=== PATIENT | male | born 1990 | race African-American/Black ===

== ENCOUNTER 2018-08-09 13:55 | Emergency (ER) | payer BC ==
[2018-08-09 15:15] LABS: CHLORIDE,CL 103 mmol/L (98-107); SODIUM,NA 139 mmol/L (136-148)
--- NOTE | 2018-08-09 15:28 | EDM.PDOC ---
ED HPI GENERAL MEDICAL PROBLEM - General Chief Complaint: Cardiovascular Problem Stated Complaint: DIZZY,DISORIENTATED, FREQUENT URINATION Time Seen by Provider: 08/09/18 13:56 Source of Information: Reports: Patient History Limitations: Reports: No Limitations - History of Present Illness INITIAL COMMENTS - FREE TEXT/NARRATIVE: History of present illness: []She has not been able to sleep well for several days and is feeling disoriented. He also complains of frequent urination. Any fevers, chills, nausea , vomiting, diarrhea, chest pain or abdominal pain. Review of systems: As per history of present illness and below otherwise all systems reviewed and negative. Past medical history: As per history of present illness and as reviewed below otherwise noncontributory. Surgical history: As per history of present illness and as reviewed below otherwise noncontributory. Social history: No reported history of drug or alcohol abuse. Family history: As per history of present illness and as reviewed below otherwise noncontributory. Physical exam: General: Well developed, well nourished in NAD HEENT: Atraumatic, normocephalic, pupils reactive, negative for conjunctival pallor or scleral icterus, mucous membranes moist, throat clear, neck supple, nontender, trachea midline. Lungs: Clear to auscultation, breath sounds equal bilaterally, chest nontender. Heart: S1S2, regular, negative for clicks, rubs, or JVD. Abdomen: NABS, Soft, nondistended, nontender. Negative for masses or hepatosplenomegaly. Negative for costovertebral tenderness. Pelvis: Stable nontender. Genitourinary: Deferred. Rectal: Deferred. Extremities: Atraumatic, negative for cords or calf pain. Neurovascular unremarkable. Neuro: Awake, alert, oriented. Cranial nerves II through XII unremarkable. Cerebellum unremarkable. Motor and sensory unremarkable throughout. Exam nonfocal. Skin:warm and dry Diagnostics: CBC, chemistry-with mildly elevated BUN/creatinine, urine, drug screen all negative Therapeutics: None ED Course: Unremarkable Impression: Dehydration, insomnia Prescriptions: None Plan: Follow-up with primary care, increase fluids, Benadryl for sleep. Definitive disposition and diagnosis as appropriate pending reevaluation and review of above. - Related Data Allergies Allergy/AdvReac Type Severity Reaction Status Date / Time No Known Allergies Allergy Verified 08/09/18 14:06 Home Meds: Home Meds . [No Known Home Meds] 08/09/18 [History] Past Medical History HEENT History: Reports: None Cardiovascular History: Reports: None Respiratory History: Reports: None Gastrointestinal History: Reports: None Genitourinary History: Reports: None Musculoskeletal History: Reports: None Neurological History: Reports: None Psychiatric History: Reports: None Endocrine/Metabolic History: Reports: None Hematologic History: Reports: None Immunologic History: Reports: None Oncologic (Cancer) History: Reports: None Dermatologic History: Reports: None - Past Surgical History Head Surgeries/Procedures: Reports: None HEENT Surgical History: Reports: None Cardiovascular Surgical History: Reports: None Respiratory Surgical History: Reports: None GI Surgical History: Reports: None Male Surgical History: Reports: None Endocrine Surgical History: Reports: None Neurological Surgical History: Reports: None Musculoskeletal Surgical History: Reports: None Oncologic Surgical History: Reports: None Dermatological Surgical History: Reports: None Social & Family History - Family History Family Medical History: Noncontributory - Tobacco Use Smoking Status *Q: Current Some Day Smoker Years of Tobacco use: 10 Packs/Tins Daily: 0.1 - Caffeine Use Caffeine Use: Reports: Coffee - Recreational Drug Use Recreational Drug Use: No ED ROS GENERAL - Review of Systems Review Of Systems: ROS reveals no pertinent complaints other than HPI. ED EXAM, GENERAL - Physical Exam Exam: See Below (See history of present illness) Course - Vital Signs Last Recorded V/S: Last Vital Signs Temp 97.4 F 08/09/18 14:06 Pulse 104 H 08/09/18 14:06 Resp 18 08/09/18 14:06 BP 155/94 H 08/09/18 14:06 Pulse Ox 97 08/09/18 14:06 - Orders/Labs/Meds Labs: Laboratory Tests 08/09/18 08/09/18 08/09/18 Range/Units 14:26 14:26 14:26 WBC 4.39 (4.0-11.0) K/uL RBC 4.97 (4.50-5.90) M/uL Hgb 14.0 (13.0-17.0) g/dL Hct 42.8 (38.0-50.0) % MCV 86.1 (80.0-98.0) fL MCH 28.2 (27.0-32.0) pg MCHC 32.7 (31.0-37.0) g/dL RDW Std Deviation 44.3 (28.0-62.0) fl RDW Coeff of Dorys 14 (11.0-15.0) % Plt Count 285 (150-400) K/uL MPV 10.80 (7.40-12.00) fL Neut % (Auto) 40.5 L (48.0-80.0) % Lymph % (Auto) 49.9 H (16.0-40.0) % Trigg % (Auto) 8.0 (0.0-15.0) % Eos % (Auto) 0.9 (0.0-7.0) % Baso % (Auto) 0.7 (0.0-1.5) % Neut # (Auto) 1.8 (1.4-5.7) K/uL Lymph # (Auto) 2.2 (0.6-2.4) K/uL Trigg # (Auto) 0.4 (0.0-0.8) K/uL Eos # (Auto) 0.0 (0.0-0.7) K/uL Baso # (Auto) 0.0 (0.0-0.1) K/uL Nucleated RBC % 0.0 /100WBC Nucleated RBCs # 0 K/uL Sodium (136-148) mmol/L Potassium (3.5-5.1) mmol/L Chloride (98-107) mmol/L Carbon Dioxide (21.0-32.0) mmol/L BUN (7.0-18.0) mg/dL Creatinine (0.8-1.3) mg/dL Est Cr Clr Drug Dosing mL/min Estimated GFR (MDRD) ml/min Glucose (74-106) mg/dL Calcium (8.5-10.1) mg/dL Total Bilirubin (0.2-1.0) mg/dL AST (15-37) IU/L ALT (14-63) IU/L Alkaline Phosphatase (46-116) U/L Total Protein (6.4-8.2) g/dL Albumin (3.4-5.0) g/dL Globulin (2.6-4.0) g/dL Albumin/Globulin Ratio (0.9-1.6) Urine Color YELLOW Urine Appearance CLEAR Urine pH 5.5 (5.0-8.0) Ur Specific [place] >= 1.030 (1.001-1.035) Urine Protein NEGATIVE (NEGATIVE) mg/dL Urine Glucose (UA) NEGATIVE (NEGATIVE) mg/dL Urine Ketones NEGATIVE (NEGATIVE) mg/dL Urine Occult Blood NEGATIVE (NEGATIVE) Urine Nitrite NEGATIVE (NEGATIVE) Urine Bilirubin NEGATIVE (NEGATIVE) Urine Urobilinogen 0.2 (<2.0) EU/dL Ur Leukocyte Esterase NEGATIVE (NEGATIVE) Urine RBC 0-1 (0-2/HPF) Urine WBC 0-1 (0-5/HPF) Ur Epithelial Cells NOT SEEN (NONE-FEW) Urine Bacteria RARE (NEGATIVE) Urine Opiates Screen NEGATIVE (NEGATIVE) Ur Oxycodone Screen NEGATIVE (NEGATIVE) Urine Methadone Screen NEGATIVE (NEGATIVE) Ur Barbiturates Screen NEGATIVE (NEGATIVE) Ur Phencyclidine Scrn NEGATIVE (NEGATIVE) Ur Amphetamine Screen NEGATIVE (NEGATIVE) U Methamphetamines Scrn NEGATIVE (NEGATIVE) U Benzodiazepines Scrn NEGATIVE (NEGATIVE) U Cocaine Metab Screen NEGATIVE (NEGATIVE) U Marijuana (THC) Screen NEGATIVE (NEGATIVE) 08/09/18 Range/Units 14:26 WBC (4.0-11.0) K/uL RBC (4.50-5.90) M/uL Hgb (13.0-17.0) g/dL Hct (38.0-50.0) % MCV (80.0-98.0) fL MCH (27.0-32.0) pg MCHC (31.0-37.0) g/dL RDW Std Deviation (28.0-62.0) fl RDW Coeff of Dorys (11.0-15.0) % Plt Count (150-400) K/uL MPV (7.40-12.00) fL Neut % (Auto) (48.0-80.0) % Lymph % (Auto) (16.0-40.0) % Trigg % (Auto) (0.0-15.0) % Eos % (Auto) (0.0-7.0) % Baso % (Auto) (0.0-1.5) % Neut # (Auto) (1.4-5.7) K/uL Lymph # (Auto) (0.6-2.4) K/uL Trigg # (Auto) (0.0-0.8) K/uL Eos # (Auto) (0.0-0.7) K/uL Baso # (Auto) (0.0-0.1) K/uL Nucleated RBC % /100WBC Nucleated RBCs # K/uL Sodium 139 (136-148) mmol/L Potassium 4.1 (3.5-5.1) mmol/L Chloride 103 (98-107) mmol/L Carbon Dioxide 28.4 (21.0-32.0) mmol/L BUN 19 H (7.0-18.0) mg/dL Creatinine 1.5 H (0.8-1.3) mg/dL Est Cr Clr Drug Dosing 90.75 mL/min Estimated GFR (MDRD) > 60.0 ml/min Glucose 117 H (74-106) mg/dL Calcium 9.1 (8.5-10.1) mg/dL Total Bilirubin 0.2 (0.2-1.0) mg/dL AST 21 (15-37) IU/L ALT 60 (14-63) IU/L Alkaline Phosphatase 64 (46-116) U/L Total Protein 7.9 (6.4-8.2) g/dL Albumin 4.0 (3.4-5.0) g/dL Globulin 3.9 (2.6-4.0) g/dL Albumin/Globulin Ratio 1.0 (0.9-1.6) Urine Color Urine Appearance Urine pH (5.0-8.0) Ur Specific [place] (1.001-1.035) Urine Protein (NEGATIVE) mg/dL Urine Glucose (UA) (NEGATIVE) mg/dL Urine Ketones (NEGATIVE) mg/dL Urine Occult Blood (NEGATIVE) Urine Nitrite (NEGATIVE) Urine Bilirubin (NEGATIVE) Urine Urobilinogen (<2.0) EU/dL Ur Leukocyte Esterase (NEGATIVE) Urine RBC (0-2/HPF) Urine WBC (0-5/HPF) Ur Epithelial Cells (NONE-FEW) Urine Bacteria (NEGATIVE) Urine Opiates Screen (NEGATIVE) Ur Oxycodone Screen (NEGATIVE) Urine Methadone Screen (NEGATIVE) Ur Barbiturates Screen (NEGATIVE) Ur Phencyclidine Scrn (NEGATIVE) Ur Amphetamine Screen (NEGATIVE) U Methamphetamines Scrn (NEGATIVE) U Benzodiazepines Scrn (NEGATIVE) U Cocaine Metab Screen (NEGATIVE) U Marijuana (THC) Screen (NEGATIVE) Departure - Departure Time of Disposition: 15:27 Disposition: Home, Self-Care 01 Condition: Good Clinical Impression: Dehydration Insomnia Qualifiers: Insomnia type: unspecified Qualified Code(s): G47.00 - Insomnia, unspecified Referrals: PCP,None [Primary Care Provider] - Additional Instructions: The following information is given to patients seen in the emergency department who are being discharged to home. This information is to outline your options for follow-up care. We provide all patients seen in our emergency department with a follow-up referral. The need for follow-up, as well as the timing and circumstances, are variable depending upon the specifics of your emergency department visit. If you don't have a primary care physician on staff, we will provide you with a referral. We always advise you to contact your personal physician following an emergency department visit to inform them of the circumstance of the visit and for follow-up with them and/or the need for any referrals to a consulting specialist. The emergency department will also refer you to a specialist when appropriate. This referral assures that you have the opportunity for follow-up care with a specialist. All of these measure are taken in an effort to provide you with optimal care, which includes your follow-up. Under all circumstances we always encourage you to contact your private physician who remains a resource for coordinating your care. When calling for follow-up care, please make the office aware that this follow-up is from your recent emergency room visit. If for any reason you are refused follow-up, please contact the [facility] Emergency Department at and asked to speak to the emergency department charge nurse. increase fluids, follow-up with primary care. He continues 1-2 tablets of Benadryl at night for sleep, is worse or change. [facility] [place] [id number]
== END 2018-08-09 16:05 | disposition home or self-care (01) ==
LOC: MW.ED 13:55
DX: E86.0 Dehydration (principal); G47.00 Insomnia, unspecified; F17.210 Nicotine dependence, cigarettes, uncomplicated
CPT/HCPCS: 36415; 80053; 80305-QW; 81001; 85025; 93005; 99283; 99284

== ENCOUNTER 2020-02-14 07:51 | Emergency (ER) | payer BC, OTHER ==
[2020-02-14] MEDS ORDERED: Acetaminophen 500 MG Tab PO ONE (08:17)
[2020-02-14] MEDS ORDERED: Ibuprofen 400 MG Tab PO ONE (08:17)
[2020-02-14] MEDS ORDERED: Sodium Chloride 0.9% 10 ML Syringe FLUSH PRN (08:17)
[2020-02-14] MEDS ORDERED: Sodium Chloride 0.9% 2.5 ML Syringe FLUSH PRN (08:17)
--- NOTE | 2020-02-14 08:35 | EDM.PDOC ---
ED [facility] GENERAL MEDICAL PROBLEM - General Chief Complaint: General Stated Complaint: LOWER BACK PAIN Time Seen by Provider: 02/14/20 07:56 Source of Information: Reports: Patient History Limitations: Reports: No Limitations - History of Present Illness INITIAL COMMENTS - FREE TEXT/NARRATIVE: 29-year-old male with no past medical history presenting with rectal pain. Patient reports a one-week history of pain in the perianal region. He is concerned that he may have a hemorrhoid. He has been taking Preparation H at home with partial relief of his pain. Reports perianal pain, denies itching, fever, rectal bleeding, bloody stools, constipation, or diarrhea. No previously diagnosed history of hemorrhoids. ROS: A 10-point review of systems was negative, except as noted in the HPI (or in the ROS section of this note). Past medical history: Reviewed, no additional pertinent history. Surgical history: Reviewed in system, no additional pertinent history. Social history: Reviewed in system, no additional pertinent history. Family history: Reviewed in system, no additional pertinent history. PHYSICAL EXAM Vital signs reviewed. Nursing notes reviewed. Constitutional: Awake, alert, non-distressed. Head: Normocephalic, atraumatic. Eyes: EOMI, conjunctiva normal, no discharge, no scleral icterus. Ears, Nose, Throat: External ears and nose normal, moist oral mucosa. Cardiovascular: 2+ radial pulse, capillary refill less than 2 seconds. Pulmonary: normal work of breathing, no accessory muscle use. Abdomen/GI: Soft, nontender, nondistended, no guarding or rigidity, no masses. : Chaperoned exam with NINA Stallworth. The right posterolateral perianal region is erythematous and exquisitely tender with mild fluctuance concerning for a cellulitis vs possible early developing abscess. There is no evidence of external hemorrhoid. No evidence of anal fissure. Musculoskeletal: No deformities. Integumentary: Appropriate color for ethnicity, warm, dry, no pallor or jaundice, no rash. Neurologic: Alert, answering questions appropriately, normal speech, no facial droop, moving all extremities well. Psychiatric: Appropriate mood and affect, normal thought process. rectal Pain Score (Numeric/FACES): 8 - Related Data Allergies Allergy/AdvReac Type Severity Reaction Status Date / Time No Known Allergies Allergy Verified 02/14/20 08:00 Home Meds: Home Meds Acetaminophen [Acetaminophen Extra Strength] 500 - 1,000 mg PO Q6H PRN #30 tablet 02/14/20 [Rx] Doxycycline Hyclate 100 mg PO BID 14 Days #28 tablet. 02/14/20 [Rx] Ibuprofen 400 mg PO Q6H PRN #30 tablet 02/14/20 [Rx] Past Medical History HEENT History: Reports: None Cardiovascular History: Reports: None Respiratory History: Reports: None Gastrointestinal History: Reports: None Genitourinary History: Reports: None Musculoskeletal History: Reports: None Neurological History: Reports: None Psychiatric History: Reports: None Endocrine/Metabolic History: Reports: None Hematologic History: Reports: None Immunologic History: Reports: None Oncologic (Cancer) History: Reports: None Dermatologic History: Reports: None - Infectious Disease History Infectious Disease History: Reports: Chicken Pox - Past Surgical History Head Surgeries/Procedures: Reports: None HEENT Surgical History: Reports: None Cardiovascular Surgical History: Reports: None Respiratory Surgical History: Reports: None GI Surgical History: Reports: None Male Surgical History: Reports: None Endocrine Surgical History: Reports: None Neurological Surgical History: Reports: None Musculoskeletal Surgical History: Reports: None Oncologic Surgical History: Reports: None Dermatological Surgical History: Reports: None Social & Family History - Family History Family Medical History: Noncontributory - Tobacco Use Smoking Status *Q: Never Smoker - Caffeine Use Caffeine Use: Reports: Coffee - Recreational Drug Use Recreational Drug Use: Yes Recreational Drug Type: Reports: Marijuana/Hashish Recreational Drug Use Frequency: Monthly ED ROS GENERAL - Review of Systems Review Of Systems: See Below ED EXAM, GENERAL - Physical Exam Exam: See Below ED I&D PROCEDURES - I&D Site: Left buttock/gluteal cleft Skin prep: Isopropyl Alcohol (Alcohol) Local Anesthesia - Bupivicaine (Marcaine): 0.5% Plain Local Anesthetic Volume: 5cc Area Incised With: 11 Blade Drainage: Purulent, Large Amount Probed to Break Up Loculations: Yes Packed With: 1/4 in. Iodoform Sterile Dressinx4(s) Complications: No Course - Vital Signs Text/Narrative:: Patient hemodynamically stable, afebrile, well-appearing, looks nontoxic. Differential diagnosis includes but is not limited to: perianal cellulitis, perianal abscess, perirectal abscess, etc. Labs reassuring, mildly elevated creatinine. Exam and CT scan are consistent with a perianal abscess, otherwise no acute findings. Patient was very intolerant of physical examination and I do not think he is a good candidate for bedside I&D with local anesthesia alone. We did discuss options including IV opioid and benzodiazepine therapy along with local infiltration of anesthesia, the patient would prefer procedural sedation. I consulted the on-call MANAGER [employer] team who performed procedural sedation, refer to their documentation for the sedation portion of the procedure. I then performed a bedside incision and drainage as detailed in the procedure note. Patient recovered well without complications. Wound culture was sent. Patient is stable to discharge home with return in 48 hours for recheck and packing removal. Will be sent home on a twice daily course of doxycycline pending culture results. Recommended acetaminophen and ibuprofen as needed for pain. Plan: Patient is stable to discharge home with outpatient primary care clinic follow-up. Strict emergency department return precautions were provided, patien t indicated understanding. All questions were answered prior to departure. Discharged in good condition. Last Recorded V/S: Last Vital Signs Temp 35.9 C L 02/14/20 08:00 Pulse 93 02/14/20 09:06 Resp 18 02/14/20 10:07 BP 142/81 H 02/14/20 10:07 Pulse Ox 97 02/14/20 09:06 - Orders/Labs/Meds Orders: Active Orders 24 hr Category Date Time Status Pulse Oximetry [RC] ASDIRECTED Care 02/14/20 08:17 Active Nothing Per Oral Diet [DIET] Diet 02/14/20 Breakfast Active CULTURE WOUND [RM] Stat Lab 02/14/20 10:55 Received Sodium Chloride 0.9% [Saline Flush] Med 02/14/20 08:17 Active 10 ml FLUSH ASDIRECTED PRN Sodium Chloride 0.9% [Saline Flush] Med 02/14/20 08:17 Active 2.5 ml FLUSH ASDIRECTED PRN Saline Lock Insert [OM.PC] Stat Oth 09/15/20 08:17 Ordered Medication Orders Sodium Chloride (Saline Flush) 10 ml FLUSH ASDIRECTED PRN PRN Reason: Keep Vein Open Last Admin: 02/14/20 09:50 Dose: 10 ml Documented by: JORGITO Sodium Chloride (Saline Flush) 2.5 ml FLUSH ASDIRECTED PRN PRN Reason: Keep Vein Open Last Admin: 02/14/20 09:50 Dose: 2.5 ml Documented by: JORGITO Labs: Laboratory Tests 02/14/20 02/14/20 Range/Units 08:23 08:23 WBC 9.65 (4.0-11.0) K/uL RBC 4.94 (4.50-5.90) M/uL Hgb 14.1 (13.0-17.0) g/dL Hct 43.4 (38.0-50.0) % MCV 87.9 (80.0-98.0) fL MCH 28.5 (27.0-32.0) pg MCHC 32.5 (31.0-37.0) g/dL RDW Std Deviation 42.2 (28.0-62.0) fl RDW Coeff of Dorys 13 (11.0-15.0) % Plt Count 334 (150-400) K/uL MPV 10.50 (7.40-12.00) fL Neut % (Auto) 70.3 (48.0-80.0) % Lymph % (Auto) 21.6 (16.0-40.0) % [place] % (Auto) 7.5 (0.0-15.0) % Eos % (Auto) 0.4 (0.0-7.0) % Baso % (Auto) 0.2 (0.0-1.5) % Neut # (Auto) 6.8 H (1.4-5.7) K/uL Lymph # (Auto) 2.1 (0.6-2.4) K/uL [place] # (Auto) 0.7 (0.0-0.8) K/uL Eos # (Auto) 0.0 (0.0-0.7) K/uL Baso # (Auto) 0.0 (0.0-0.1) K/uL Nucleated RBC % 0.0 /100WBC Nucleated RBCs # 0 K/uL Sodium 138 (136-148) mmol/L Potassium 4.0 (3.5-5.1) mmol/L Chloride 102 (98-107) mmol/L Carbon Dioxide 28.6 (21.0-32.0) mmol/L BUN 19 H (7.0-18.0) mg/dL Creatinine 1.5 H (0.8-1.3) mg/dL Est Cr Clr Drug Dosing 92.25 mL/min Estimated GFR (MDRD) > 60.0 ml/min Glucose 139 H (74-106) mg/dL Calcium 9.0 (8.5-10.1) mg/dL Meds: Medications Generic Name Dose Route Start Last Admin Trade Name Freq PRN Reason Stop Dose Admin Sodium Chloride 10 ml 02/14/20 08:17 02/14/20 09:50 Saline Flush FLUSH 10 ml ASDIRECTED PRN Administration Keep Vein Open Sodium Chloride 2.5 ml 02/14/20 08:17 02/14/20 09:50 Saline Flush FLUSH 2.5 ml ASDIRECTED PRN Administration Keep Vein Open Discontinued Medications Generic Name Dose Route Start Last Admin Trade Name Freq PRN Reason Stop Dose Admin Acetaminophen 1,000 mg 02/14/20 08:17 02/14/20 08:22 Tylenol Extra Strength PO 02/14/20 08:18 1,000 mg ONETIME ONE Administration Bupivacaine HCl Confirm 02/14/20 10:39 Sensorcaine-Mpf 0.5% Administered 02/14/20 10:40 Dose 10 ml .ROUTE .STK-MED ONE Fentanyl Confirm 02/14/20 10:22 Fentanyl Administered 02/14/20 10:23 Dose 50 mcg .ROUTE .STK-MED ONE Fentanyl Confirm 02/14/20 10:22 Sublimaze Administered 02/14/20 10:23 Dose 200 mcg .ROUTE .STK-MED ONE Ibuprofen 400 mg 02/14/20 08:17 02/14/20 08:22 Motrin PO 02/14/20 08:18 400 mg ONETIME ONE Administration Iopamidol 100 ml 02/14/20 09:55 02/14/20 09:55 Isovue-370 (76%) IVPUSH 02/14/20 09:56 100 ml ONETIME STA Administration Midazolam HCl Confirm 02/14/20 10:23 Versed 1 Mg/Ml Administered 02/14/20 10:24 Dose 2 mg .ROUTE .STK-MED ONE Propofol Confirm 02/14/20 10:23 Diprivan 20 Ml Administered 02/14/20 10:24 Dose 400 mg .ROUTE .STK-MED ONE Departure - Departure Time of Disposition: 11:25 Disposition: Home, Self-Care 01 Condition: Good Clinical Impression: Perianal abscess, Elevated serum creatinine - Discharge Information *PRESCRIPTION DRUG MONITORING PROGRAM REVIEWED*: Not Applicable *COPY OF PRESCRIPTION DRUG MONITORING REPORT IN PATIENT LASHONDA: Not Applicable Prescriptions: Acetaminophen [Acetaminophen Extra Strength] 500 - 1,000 mg PO Q6H PRN #30 tablet PRN Reason: Pain (Mild 1-3) Doxycycline Hyclate 100 mg PO BID 14 Days #28 tablet. Ibuprofen 400 mg PO Q6H PRN #30 tablet PRN Reason: Pain (Mild 1-3) Instructions: Skin Abscess, [id number] Referrals: Emergency Room [Provider Group] - 2 Days (For abscess re-check.) Forms: ED Department Discharge Additional Instructions: You were seen in the emergency department for an abscess to your buttocks. This was drained in the emergency department. I would like for you to come back to the ER in 2 days to have the abscess reevaluated and to have your packing removed if necessary. In the meantime I am going to start you on some oral antibiotics, finish the entire bottle. I recommend [id number] extra strength acetaminophen (1000 mg every 6 hours) and ibuprofen (400 mg every 6 hours) to help treat your pain. I would like for you to follow-up with a family doctor in the next few months to have a physical/general medical examination. Your creatinine (kidney function) is abnormally elevated, and I would like for you to be evaluated further by a family medicine clinic/primary medical provider for further work-up. Warning signs to come back to the ER include worsening pain, fever of 100.4 higher, chills, repeated vomiting, or any other new or concerning symptoms. Please return the emergency department immediately if your symptoms worsen or if you feel worse. Thank you for choosing the [facility] emergency department in [place] for your medical needs today. It was a pleasure caring for you. The following information is given to patients seen in the emergency department who are being discharged. This information is to outline your options for follow-up care. We provide all patients seen in our emergency department with a follow-up referral. The need for follow-up, as well as the timing and circumstances, are variable depending upon the specifics of your emergency department visit. If you don't have a primary care physician on staff, we will provide you with a referral. We always advise you to contact your personal physician following an emergency department visit to inform them of the circumstance of the visit and for follow-up with them and/or the need for any referrals to a consulting specialist. The emergency department will also refer you to a specialist when appropriate. This referral assures that you have the opportunity for follow-up care with a specialist. All of these measure are taken in an effort to provide you with optimal care, which includes your follow-up. Under all circumstances we always encourage you to contact your private physician who remains a resource for coordinating your care. When calling for follow-up care, please make the office aware that this follow-up is from your recent emergency room visit. If for any reason you are refused follow-up, please contact the [facility] Emergency Department at and asked to speak to the emergency department charge nurse. If you do not have a primary care physician that is caring for you, you can contact these clinics below to set up an appointment to establish care: [facility] - Primary Care [address] [place] [id number] [facility] [address] [place] [id number] Sepsis Event Note (ED) - Evaluation Sepsis Screening Result: No Definite Risk - Focused Exam Vital Signs: Vital Signs Temp Pulse Resp BP Pulse Ox 02/14/20 10:07 18 142/81 H 02/14/20 09:06 93 17 132/81 97 02/14/20 08:00 35.9 C L 93 18 137/78 98 - My Orders Last 24 Hours: My Active Orders 02/14/20 Breakfast Nothing Per Oral Diet [DIET] 02/14/20 08:17 Pulse Oximetry [RC] ASDIRECTED Sodium Chloride 0.9% [Saline Flush] 10 ml FLUSH ASDIRECTED PRN Sodium Chloride 0.9% [Saline Flush] 2.5 ml FLUSH ASDIRECTED PRN Saline Lock Insert [OM.PC] Stat 02/14/20 10:55 CULTURE WOUND [RM] Stat - Assessment/Plan Last 24 Hours: My Active Orders 02/14/20 Breakfast Nothing Per Oral Diet [DIET] 02/14/20 08:17 Pulse Oximetry [RC] ASDIRECTED Sodium Chloride 0.9% [Saline Flush] 10 ml FLUSH ASDIRECTED PRN Sodium Chloride 0.9% [Saline Flush] 2.5 ml FLUSH ASDIRECTED PRN Saline Lock Insert [OM.PC] Stat 02/14/20 10:55 CULTURE WOUND [RM] Stat
[2020-02-14 08:45] LABS: BLOOD UREA NITROGEN,BUN 19 mg/dL (7.0-18.0); CARBON DIOXIDE,CO2 28.6 mmol/L (21.0-32.0); CHLORIDE,CL 102 mmol/L (98-107); GLUCOSE RANDOM 139 mg/dL (74-106); SODIUM,NA 138 mmol/L (136-148)
[2020-02-14] MEDS ORDERED: Iopamidol 755 Mg/ML 100 ML Bottle IVPUSH STA (09:55)
[2020-02-14] MEDS ORDERED: fentaNYL 50 MCG/ML SDV ONE (10:22)
[2020-02-14] MEDS ORDERED: fentaNYL 100 MCG/2 ML SDV ONE (10:22)
[2020-02-14] MEDS ORDERED: Propofol 200 MG/20 ML SDV ONE (10:23)
[2020-02-14] MEDS ORDERED: Midazolam 1 MG/ML 2 ML SDV ONE (10:23)
--- NOTE | 2020-02-14 10:32 | CT ---
CT abdomen and pelvis Technique: Multiple axial sections were obtained from above the dome of the diaphragm inferiorly through the pubic symphysis. Intravenous contrast was utilized. No oral contrast has been given. Reconstructed coronal and sagittal images were reviewed. Findings: Visualized lung bases show nothing acute. Liver contains no focal abnormality. Spleen appears normal in size. Adrenal glands show no nodule. Pancreas appears within normal limits. Kidneys show symmetric contrast enhancement without hydronephrosis or mass. Aorta shows no aneurysm. Gallbladder contains no calcified gallstones. No retroperitoneal adenopathy or mesenteric abnormalities are seen. Respiratory motion artifact noted on the lower cuts within the pelvis. Appendix is seen which is normal. No pelvic mass or adenopathy is seen. Low density area is seen within the rectal wall likely representing small abscess measuring 3.4 cm x 0.9 cm x 2.2 cm. This is on the left side. No additional perirectal abnormality is seen. No intra-abdominal fluid is seen. Bone window settings were reviewed which showed no acute osseous finding. Impression: 1. Low density finding within the left side of the rectal wall compatible with small abscess with measurements as noted above. 2. No additional abnormality is appreciated on CT study of the abdomen and pelvis. Diagnostic code #3 This report was dictated in MDT
[2020-02-14] MEDS ORDERED: Bupivacaine 0.5% 10 ML SDV ONE (10:39)
--- NOTE | 2020-02-14 11:03 | PCM.PREANE ---
Preanesthetic Assessment - Anesthesia/Transfusion/Family Hx Anesthesia History: No Prior Anesthesia Type of Anesthesia Reaction: Unknown Family History of Anesthesia Reaction: No Transfusion History: No Prior Transfusion(s) - Review of Systems General: No Symptoms Pulmonary: No Symptoms Cardiovascular: No Symptoms Gastrointestinal: No Symptoms Neurological: No Symptoms Other: Reports: None - Physical Assessment NPO Status Date: 02/14/20 NPO Status Time: 08:00 Vital Signs: Last Vital Signs Temp 96.7 F L 02/14/20 08:00 Pulse 93 02/14/20 09:06 Resp 18 02/14/20 10:07 BP 142/81 H 02/14/20 10:07 Pulse Ox 97 02/14/20 09:06 Height: 6 ft 6 in Weight: 122.47 kg ASA Class: 1E Mental Status: Alert & Oriented x3 Airway Class: Mallampati = 2 Dentition: Reports: Normal Dentition Thyro-Mental Finger Breadths: 3 Mouth Opening Finger Breadths: 3 ROM/Head Extension: Full Lungs: Clear to Auscultation, Normal Respiratory Effort Cardiovascular: Regular Rate, Regular Rhythm - Lab Values: Laboratory Last Values WBC 9.65 K/uL (4.0-11.0) 02/14/20 08:23 RBC 4.94 M/uL (4.50-5.90) 02/14/20 08:23 Hgb 14.1 g/dL (13.0-17.0) 02/14/20 08:23 Hct 43.4 % (38.0-50.0) 02/14/20 08:23 MCV 87.9 fL (80.0-98.0) 02/14/20 08:23 MCH 28.5 pg (27.0-32.0) 02/14/20 08:23 MCHC 32.5 g/dL (31.0-37.0) 02/14/20 08:23 RDW Std Deviation 42.2 fl (28.0-62.0) 02/14/20 08:23 RDW Coeff of Dorys 13 % (11.0-15.0) 02/14/20 08:23 Plt Count 334 K/uL (150-400) 02/14/20 08:23 MPV 10.50 fL (7.40-12.00) 02/14/20 08:23 Neut % (Auto) 70.3 % (48.0-80.0) 02/14/20 08:23 Lymph % (Auto) 21.6 % (16.0-40.0) 02/14/20 08:23 [place] % (Auto) 7.5 % (0.0-15.0) 02/14/20 08:23 Eos % (Auto) 0.4 % (0.0-7.0) 02/14/20 08:23 Baso % (Auto) 0.2 % (0.0-1.5) 02/14/20 08:23 Neut # (Auto) 6.8 K/uL (1.4-5.7) H 02/14/20 08:23 Lymph # (Auto) 2.1 K/uL (0.6-2.4) 02/14/20 08:23 [place] # (Auto) 0.7 K/uL (0.0-0.8) 02/14/20 08:23 Eos # (Auto) 0.0 K/uL (0.0-0.7) 02/14/20 08: Baso # (Auto) 0.0 K/uL (0.0-0.1) 02/14/20 08: Nucleated RBC % 0.0 /100WBC 02/14/20 08: Nucleated RBCs # 0 K/uL 02/14/20 08:23 Sodium 138 mmol/L (136-148) 02/14/20 08:23 Potassium 4.0 mmol/L (3.5-5.1) 02/14/20 08:23 Chloride 102 mmol/L (98-107) 02/14/20 08:23 Carbon Dioxide 28.6 mmol/L (21.0-32.0) 02/14/20 08:23 BUN 19 mg/dL (7.0-18.0) H 02/14/20 08:23 Creatinine 1.5 mg/dL (0.8-1.3) H 02/14/20 08:23 Est Cr Clr Drug Dosing 92.25 mL/min 02/14/20 08:23 Estimated GFR (MDRD) > 60.0 ml/min 02/14/20 08:23 Glucose 139 mg/dL (74-106) H 02/14/20 08:23 Calcium 9.0 mg/dL (8.5-10.1) 02/14/20 08:23 - Allergies Allergies/Adverse Reactions: Allergies Allergy/AdvReac Type Severity Reaction Status Date / Time No Known Allergies Allergy Verified 02/14/20 08:00 - Acknowledgements Anesthesia Type Planned: MAC Pt an Appropriate Candidate for the Planned Anesthesia: Yes Alternatives and Risks of Anesthesia Discussed w Pt/Guardian: Yes Pt/Guardian Understands and Agrees with Anesthesia Plan: Yes PreAnesthesia Questionnaire HEENT History: Reports: None Cardiovascular History: Reports: None Respiratory History: Reports: None Gastrointestinal History: Reports: None Genitourinary History: Reports: None Musculoskeletal History: Reports: None Neurological History: Reports: None Psychiatric History: Reports: None Endocrine/Metabolic History: Reports: None Hematologic History: Reports: None Immunologic History: Reports: None Oncologic (Cancer) History: Reports: None Dermatologic History: Reports: None - Infectious Disease History Infectious Disease History: Reports: Chicken Pox - Past Surgical History Head Surgeries/Procedures: Reports: None HEENT Surgical History: Reports: None Cardiovascular Surgical History: Reports: None Respiratory Surgical History: Reports: None GI Surgical History: Reports: None Male Surgical History: Reports: None Endocrine Surgical History: Reports: None Neurological Surgical History: Reports: None Musculoskeletal Surgical History: Reports: None Oncologic Surgical History: Reports: None Dermatological Surgical History: Reports: None - SUBSTANCE USE Smoking Status *Q: Never Smoker Recreational Drug Use History: Yes Recreational Drug Type: Reports: Marijuana/Hashish - HOME MEDS Home Medications: Home Meds . [No Known Home Meds] 08/09/18 [History] - CURRENT (IN HOUSE) MEDS Current Meds: Current Medications Sodium Chloride (Saline Flush) 10 ml FLUSH ASDIRECTED PRN PRN Reason: Keep Vein Open Last Admin: 02/14/20 09:50 Dose: 10 ml Documented by: Sodium Chloride (Saline Flush) 2.5 ml FLUSH ASDIRECTED PRN PRN Reason: Keep Vein Open Last Admin: 02/14/20 09:50 Dose: 2.5 ml Documented by: Discontinued Medications Acetaminophen (Tylenol Extra Strength) 1,000 mg PO ONETIME ONE Stop: 02/14/20 08:18 Last Admin: 02/14/20 08:22 Dose: 1,000 mg Documented by: Bupivacaine HCl (Sensorcaine-Mpf 0.5%) Confirm Administered Dose 10 ml .ROUTE .STK-MED ONE Stop: 02/14/20 10:40 Fentanyl (Fentanyl) Confirm Administered Dose 50 mcg .ROUTE .STK-MED ONE Stop: 02/14/20 10:23 Fentanyl (Sublimaze) Confirm Administered Dose 200 mcg .ROUTE .STK-MED ONE Stop: 02/14/20 10:23 Ibuprofen (Motrin) 400 mg PO ONETIME ONE Stop: 02/14/20 08:18 Last Admin: 02/14/20 08:22 Dose: 400 mg Documented by: Iopamidol (Isovue-370 (76%)) 100 ml IVPUSH ONETIME STA Stop: 02/14/20 09:56 Last Admin: 02/14/20 09:55 Dose: 100 ml Documented by: Midazolam HCl (Versed 1 Mg/Ml) Confirm Administered Dose 2 mg .ROUTE .STK-MED ONE Stop: 02/14/20 10:24 Propofol (Diprivan 20 Ml) Confirm Administered Dose 400 mg .ROUTE .STK-MED ONE Stop: 02/14/20 10:24
--- NOTE | 2020-02-14 11:05 | PCM.POSTAN ---
POST ANESTHESIA ASSESSMENT - MENTAL STATUS Mental Status: Alert, Oriented - VITAL SIGNS Vital Signs: Last Vital Signs Temp 96.7 F L 02/14/20 08:00 Pulse 93 02/14/20 09:06 Resp 18 02/14/20 10:07 BP 142/81 H 02/14/20 10:07 Pulse Ox 97 02/14/20 09:06 - RESPIRATORY Respiratory Status: Respiratory Rate WNL, Airway Patent, O2 Saturation Stable, Supplemental Oxygen (2LPM via NC) - CARDIOVASCULAR CV Status: Pulse Rate WNL, Blood Pressure Stable - GASTROINTESTINAL GI Status: No Symptoms - PAIN Pain Score: 3 - POST OP HYDRATION Hydration Status: Adequate & Stable - OBSERVATIONS Free Text/Narrative:: Pt opens eye to voice. Dr Garcia at bedside discussing post-procedure findings with the patient at this time.
--- NOTE | 2020-02-14 11:12 | PCM48HPAN ---
Post Anesthesia Note - EVALUATION WITHIN 48HRS OF ANESTHETIC Vital Signs in Normal Range: Yes Patient Participated in Evaluation: Yes Respiratory Function Stable: Yes Airway Patent: Yes Cardiovascular Function Stable: Yes Hydration Status Stable: Yes Pain Control Satisfactory: Yes Nausea and Vomiting Control Satisfactory: Yes Mental Status Recovered: Yes Vital Signs: Last Vital Signs Temp 96.7 F L 02/14/20 08:00 Pulse 93 02/14/20 09:06 Resp 18 02/14/20 10:07 BP 142/81 H 02/14/20 10:07 Pulse Ox 97 02/14/20 09:06 - COMMENTS/OBSERVATIONS Free Text/Narrative:: Pt to be discharged from the ER at ER providers discretion.
== END 2020-02-14 11:04 | disposition home or self-care (01) ==
LOC: MW.ED 07:51
DX: K61.0 Anal abscess (principal); R79.89 Other specified abnormal findings of blood chemistry
CPT/HCPCS: 00902; 10060; 10061; 74177; 74177-26; 80048; 85025; 87070; 87077; 87186; 99283; 99284-25; A9270-GY; J3490; Q9967